=== PATIENT | male | born 1975 | race Caucasian/White ===

== ENCOUNTER 2020-04-10 07:56 | Outpatient (REF) | payer OTHER, SELFPAY ==
[2020-04-10 11:42] LABS: Alanine Aminotransferase 50 U/L (0-40); Albumin Level 4.4 g/dL (3.5-5.0); Alkaline Phosphatase 87 U/L (39-117); Anion Gap 13 (12-20); Aspartate Amino Transferase 29 U/L (5-37); Bilirubin Total 0.7 mg/dL (0.0-1.0); Blood Urea Nitrogen 14 mg/dL (9-16); Calcium 9.5 mg/dL (8.4-10.2); Carbon Dioxide 24 mmol/L (22-29); Chloride 106 mmol/L (96-108); Cholesterol 209 mg/dL; Estimated Glomerular Filt Rate > 60; Glucose Fasting 92 mg/dL (60-99); HDL Cholesterol 49 mg/dL; LDL Cholesterol Calculated 135 mg/dl; Potassium 4.7 mmol/l (3.3-5.1); Sodium 138 mmol/L (135-145); Total Protein 7.4 g/dL (6.5-8.0); Triglycerides 127 mg/dL
[2020-04-10 12:03] LABS: Free T4 (Free Thyroxine) 0.89 ng/dL (0.71-1.85)
== END 2020-04-10 07:57 | disposition home or self-care (01) ==
LOC: HO.HMGCLDS 07:56
PROVIDERS: PCP Internal Medicine; Visit Provider Internal Medicine
DX: E78.2 Mixed hyperlipidemia (principal); D12.6 Benign neoplasm of colon, unspecified; E03.9 Hypothyroidism, unspecified; M05.79 Rheumatoid arthritis with rheumatoid factor of multiple sites without organ or systems involvement; Z80.0 Family history of malignant neoplasm of digestive organs
CPT/HCPCS: 36415; 80053; 80061; 84439; 84443

== ENCOUNTER → 2020-04-16 12:53 | Outpatient (BNVA) | payer OTHER, SELFPAY | PROVIDERS: PCP Internal Medicine; Referring Provider Internal Medicine; Visit Provider Internal Medicine Gastroenterology | DX: Z76.89 Persons encountering health services in other specified circumstances (principal) ==

== ENCOUNTER 2020-04-29 09:32 | Outpatient (REF) | payer OTHER, SELFPAY ==
[2020-04-29 11:10] LABS: MANUAL DIFF FLAG NO
[2020-04-29 11:37] LABS: Basophils Absolute Auto 0.1 X10*3/uL (0.0-0.2); Basophils Percent Auto 1.3 % (0-2); Eosinophils Absolute Auto 0.1 X10*3/uL (0.0-0.4); Eosinophils Percent Auto 1.3 % (0-4); Hematocrit 40.9 % (42-52); Hemoglobin 13.6 g/dl (14.0-18.0); Imm Gran Abs Auto 0.01 X10*3/uL (0.00-0.03); Imm Gran Pct Auto 0.2 % (0.0-0.4); Lymphocytes Absolute Auto 1.7 X10*3/uL (1.2-4.9); Lymphocytes Percent Auto 37.3 % (20-40); Mean Corpuscular HGB Conc 33.3 g/dl (31.0-36.0); Mean Corpuscular Hemoglobin 32.8 pg (27.0-33.0); Mean Corpuscular Volume 98.6 fL (80-98); Mean Platelet Volume 10.5 fL (9.4-12.4); Monocytes Absolute Auto 0.4 X10*3/uL (0.1-1.2); Monocytes Percent Auto 9.1 % (2-11); Neutrophils Absolute Auto 2.3 X10*3/uL (2.0-8.3); Neutrophils Percent Auto 50.8 % (45-73); Platelet Count 266 X10*3/uL (160-400); Red Blood Count 4.15 X10*6/uL (4.60-5.80); Red Cell Distribution Width 12.7 % (11.0-16.0); White Blood Count 4.6 X10*3/uL (4.8-10.8)
[2020-04-29 11:46] LABS: Alanine Aminotransferase 42 U/L (0-40); Albumin Level 4.6 g/dL (3.5-5.0); Alkaline Phosphatase 84 U/L (39-117); Anion Gap 14 (12-20); Aspartate Amino Transferase 28 U/L (5-37); Bilirubin Total 0.8 mg/dL (0.0-1.0); Blood Urea Nitrogen 12 mg/dL (9-16); C Reactive Protein 0.21 mg/dL (< or = 0.50); Calcium 9.6 mg/dL (8.4-10.2); Carbon Dioxide 24 mmol/L (22-29); Chloride 105 mmol/L (96-108); Estimated Glomerular Filt Rate > 60; Glucose Random 97 mg/dL (60-115); Potassium 4.5 mmol/l (3.3-5.1); Sodium 138 mmol/L (135-145); Total Protein 7.5 g/dL (6.5-8.0)
[2020-04-29 14:08] LABS: Erythrocyte Sedimentation Rate 7 MM/HR (0-15)
== END 2020-04-29 09:33 | disposition home or self-care (01) ==
LOC: HO.HMGCLDS 09:32
PROVIDERS: PCP Internal Medicine; Visit Provider Student in an Organized Health Care Education/Training Program
DX: M05.79 Rheumatoid arthritis with rheumatoid factor of multiple sites without organ or systems involvement (principal); Z79.899 Other long term (current) drug therapy
CPT/HCPCS: 36415; 80053; 85025; 85652; 86140

== ENCOUNTER → 2020-07-18 08:29 | Outpatient (BNVA) | payer OTHER, SELFPAY | PROVIDERS: PCP Internal Medicine; Referring Provider Internal Medicine; Visit Provider Student in an Organized Health Care Education/Training Program | DX: Z76.89 Persons encountering health services in other specified circumstances (principal) ==

== ENCOUNTER 2020-12-01 08:25 | Outpatient (REF) | payer OTHER, SELFPAY ==
[2020-12-01 11:19] LABS: MANUAL DIFF FLAG NO
[2020-12-01 12:00] LABS: Basophils Absolute Auto 0.1 X10*3/uL (0.0-0.2); Basophils Percent Auto 1.9 % (0-2); Eosinophils Absolute Auto 0.2 X10*3/uL (0.0-0.4); Eosinophils Percent Auto 3.4 % (0-4); Hematocrit 45.1 % (42-52); Hemoglobin 14.9 g/dl (14.0-18.0); Imm Gran Abs Auto 0.01 X10*3/uL (0.00-0.03); Imm Gran Pct Auto 0.2 % (0.0-0.4); Lymphocytes Absolute Auto 1.6 X10*3/uL (1.2-4.9); Lymphocytes Percent Auto 33.8 % (20-40); Mean Corpuscular Volume 96.8 fL (80-98); Mean Platelet Volume 10.7 fL (9.4-12.4); Monocytes Absolute Auto 0.4 X10*3/uL (0.1-1.2); Monocytes Percent Auto 9.1 % (2-11); Neutrophils Absolute Auto 2.4 X10*3/uL (2.0-8.3); Neutrophils Percent Auto 51.6 % (45-73); Platelet Count 250 X10*3/uL (160-400); Red Blood Count 4.66 X10*6/uL (4.60-5.80); White Blood Count 4.7 X10*3/uL (4.8-10.8)
[2020-12-01 12:17] LABS: Alanine Aminotransferase 36 U/L (0-40); Albumin Level 4.5 g/dL (3.5-5.0); Alkaline Phosphatase 86 U/L (39-117); Anion Gap 13 (12-20); Aspartate Amino Transferase 21 U/L (5-37); Bilirubin Total 0.9 mg/dL (0.0-1.0); Blood Urea Nitrogen 11 mg/dL (9-16); C Reactive Protein 0.16 mg/dL (< or = 0.50); Carbon Dioxide 27 mmol/L (22-29); Chloride 104 mmol/L (96-108); Cholesterol 185 mg/dL; Estimated Glomerular Filt Rate > 60; Glucose Random 103 mg/dL (60-115); HDL Cholesterol 50 mg/dL; LDL Cholesterol Calculated 113 mg/dl; Potassium 4.6 mmol/L (3.3-5.1); Sodium 139 mmol/L (135-145); Thyroid Stimulating Hormone 2.47 uIU/mL (0.32-4.0); Total Protein 7.4 g/dL (6.5-8.0); Triglycerides 112 mg/dL
[2020-12-01 13:04] LABS: Erythrocyte Sedimentation Rate 3 MM/HR (0-15)
[2020-12-02 09:42] LABS: Thyroid Peroxidase Antibodies 51 IU/mL (<9)
== END 2020-12-01 08:26 | disposition home or self-care (01) ==
LOC: HO.HMGCLDS 08:25
PROVIDERS: PCP Internal Medicine; Visit Provider Student in an Organized Health Care Education/Training Program
DX: Z00.01 Encounter for general adult medical examination with abnormal findings (principal); M05.9 Rheumatoid arthritis with rheumatoid factor, unspecified; E03.9 Hypothyroidism, unspecified; E78.2 Mixed hyperlipidemia; Z86.39 Personal history of other endocrine, nutritional and metabolic disease
CPT/HCPCS: 36415; 80053; 80061; 82306; 84439; 84443; 85025; 85652; 86140; 86376

== ENCOUNTER → 2021-01-15 09:38 | Outpatient (BNVA) | payer OTHER, SELFPAY | PROVIDERS: PCP Internal Medicine; Visit Provider Student in an Organized Health Care Education/Training Program ==

== ENCOUNTER 2021-06-02 10:53 | Outpatient (REF) | payer OTHER, SELFPAY ==
[2021-06-02 13:49] LABS: MANUAL DIFF FLAG NO
[2021-06-02 14:02] LABS: Basophils Absolute Auto 0.1 X10*3/uL (0.0-0.2); Basophils Percent Auto 1.6 % (0-2); Eosinophils Absolute Auto 0.1 X10*3/uL (0.0-0.4); Eosinophils Percent Auto 1.6 % (0-4); Hematocrit 45.3 % (42.0-52.0); Hemoglobin 15.3 g/dl (14.0-18.0); Imm Gran Abs Auto 0.01 X10*3/uL (0.00-0.03); Imm Gran Pct Auto 0.2 % (0.0-0.4); Lymphocytes Absolute Auto 2.2 X10*3/uL (1.2-4.9); Lymphocytes Percent Auto 38.6 % (20-40); Mean Corpuscular HGB Conc 33.8 g/dl (31.0-36.0); Mean Corpuscular Volume 97.8 fL (80.0-98.0); Mean Platelet Volume 10.8 fL (9.4-12.4); Monocytes Absolute Auto 0.6 X10*3/uL (0.1-1.2); Monocytes Percent Auto 10.9 % (2-11); Neutrophils Absolute Auto 2.7 x10*3/uL (2.0-8.3); Neutrophils Percent Auto 47.1 % (45-73); Platelet Count 265 X10*3/uL (160-400); Red Blood Count 4.63 X10*6/uL (4.60-5.80); Red Cell Distribution Width 12.4 % (11.0-16.0); White Blood Count 5.8 X10*3/uL (4.8-10.8)
[2021-06-02 14:23] LABS: Alanine Aminotransferase 39 U/L (0-40); Albumin Level 4.6 g/dL (3.5-5.0); Alkaline Phosphatase 89 U/L (39-117); Anion Gap 12 (12-20); Aspartate Amino Transferase 26 U/L (5-37); Bilirubin Total 0.6 mg/dL (0.0-1.0); Blood Urea Nitrogen 10 mg/dL (9-16); Calcium 9.8 mg/dL (8.4-10.2); Carbon Dioxide 27 mmol/L (22-29); Chloride 104 mmol/L (96-108); Estimated Glomerular Filt Rate > 60; Glucose Random 83 mg/dL (60-115); Potassium 4.4 mmol/L (3.3-5.1); Sodium 139 mmol/L (135-145); Total Protein 7.8 g/dL (6.5-8.0)
[2021-06-02 14:42] LABS: Erythrocyte Sedimentation Rate 2 MM/HR (0-15)
== END 2021-06-02 10:54 | disposition home or self-care (01) ==
LOC: HO.HMGCLDS 10:53
PROVIDERS: Visit Provider Nurse Practitioner Family
DX: M05.9 Rheumatoid arthritis with rheumatoid factor, unspecified (principal)
CPT/HCPCS: 36415; 80053; 85025; 85652; 86140

== ENCOUNTER → 2021-06-25 12:30 | Outpatient (BNVA) | payer OTHER, SELFPAY | PROVIDERS: PCP Internal Medicine; Visit Provider Nurse Practitioner Family ==

== ENCOUNTER 2021-09-23 07:23 | Outpatient (REF) | payer OTHER, SELFPAY ==
[2021-09-23 11:25] LABS: MANUAL DIFF FLAG NO
[2021-09-23 11:39] LABS: Basophils Absolute Auto 0.1 X10*3/uL (0.0-0.2); Basophils Percent Auto 1.7 % (0-2); Eosinophils Absolute Auto 0.1 X10*3/uL (0.0-0.4); Eosinophils Percent Auto 1.7 % (0-4); Hematocrit 44.4 % (42.0-52.0); Hemoglobin 14.8 g/dl (14.0-18.0); Imm Gran Abs Auto 0.01 X10*3/uL (0.00-0.03); Imm Gran Pct Auto 0.2 % (0.0-0.4); Lymphocytes Absolute Auto 1.6 X10*3/uL (1.2-4.9); Lymphocytes Percent Auto 33.7 % (20-40); Mean Corpuscular HGB Conc 33.3 g/dl (31.0-36.0); Mean Corpuscular Volume 99.1 fL (80.0-98.0); Monocytes Absolute Auto 0.4 X10*3/uL (0.1-1.2); Monocytes Percent Auto 9.2 % (2-11); Neutrophils Absolute Auto 2.5 x10*3/uL (2.0-8.3); Neutrophils Percent Auto 53.5 % (45-73); Platelet Count 250 X10*3/uL (160-400); Red Blood Count 4.48 X10*6/uL (4.60-5.80); Red Cell Distribution Width 12.7 % (11.0-16.0); White Blood Count 4.7 X10*3/uL (4.8-10.8)
[2021-09-23 12:03] LABS: Alanine Aminotransferase 45 U/L (0-40); Albumin Level 4.4 g/dL (3.5-5.0); Alkaline Phosphatase 80 U/L (39-117); Anion Gap 13 (12-20); Aspartate Amino Transferase 27 U/L (5-37); Bilirubin Total 0.6 mg/dL (0.0-1.0); Blood Urea Nitrogen 12 mg/dL (9-16); C Reactive Protein 0.16 mg/dL (< or = 0.50); Calcium 9.8 mg/dL (8.4-10.2); Carbon Dioxide 26 mmol/L (22-29); Chloride 108 mmol/L (96-108); Estimated Glomerular Filt Rate > 60; Glucose Random 106 mg/dL (60-115); Potassium 4.8 mmol/L (3.3-5.1); Sodium 142 mmol/L (135-145); Total Protein 7.2 g/dL (6.5-8.0)
[2021-09-23 12:23] LABS: Erythrocyte Sedimentation Rate 2 MM/HR (0-15)
== END 2021-09-23 07:24 | disposition home or self-care (01) ==
LOC: HO.HMGCLDS 07:23
PROVIDERS: PCP Internal Medicine; Visit Provider Nurse Practitioner Family
DX: M05.9 Rheumatoid arthritis with rheumatoid factor, unspecified (principal)
CPT/HCPCS: 36415; 80053; 85025; 85652; 86140

== ENCOUNTER → 2021-09-24 11:00 | Outpatient (BNVA) | payer OTHER, SELFPAY | PROVIDERS: PCP Internal Medicine; Visit Provider Nurse Practitioner Family | DX: Z13.89 Encounter for screening for other disorder (principal) ==

== ENCOUNTER 2022-02-01 08:47 | Outpatient (REF) | payer OTHER, SELFPAY ==
[2022-02-01 11:16] LABS: MANUAL DIFF FLAG NO
[2022-02-01 11:23] LABS: Basophils Absolute Auto 0.1 X10*3/uL (0.0-0.2); Basophils Percent Auto 1.7 % (0-2); Eosinophils Absolute Auto 0.1 X10*3/uL (0.0-0.4); Eosinophils Percent Auto 1.3 % (0-4); Hematocrit 44.6 % (42.0-52.0); Imm Gran Abs Auto 0.03 X10*3/uL (0.00-0.03); Imm Gran Pct Auto 0.6 % (0.0-0.4); Lymphocytes Absolute Auto 1.6 X10*3/uL (1.2-4.9); Mean Corpuscular HGB Conc 33.6 g/dl (31.0-36.0); Mean Corpuscular Volume 98.2 fL (80.0-98.0); Mean Platelet Volume 10.7 fL (9.4-12.4); Monocytes Absolute Auto 0.4 X10*3/uL (0.1-1.2); Neutrophils Absolute Auto 2.5 x10*3/uL (2.0-8.3); Neutrophils Percent Auto 52.4 % (45-73); Platelet Count 248 X10*3/uL (160-400); Red Blood Count 4.54 X10*6/uL (4.60-5.80); Red Cell Distribution Width 13.2 % (11.0-16.0); White Blood Count 4.7 X10*3/uL (4.8-10.8)
[2022-02-01 11:55] LABS: Alanine Aminotransferase 38 U/L (0-40); Albumin Level 4.5 g/dL (3.5-5.0); Alkaline Phosphatase 77 U/L (39-117); Anion Gap 9 (12-20); Aspartate Amino Transferase 22 U/L (5-37); Bilirubin Total 0.5 mg/dL (0.0-1.0); Blood Urea Nitrogen 10 mg/dL (9-16); Calcium 9.8 mg/dL (8.4-10.2); Carbon Dioxide 28 mmol/L (22-29); Chloride 105 mmol/L (96-108); Estimated Glomerular Filt Rate > 60; Glucose Random 101 mg/dL (60-115); Potassium 4.6 mmol/L (3.3-5.1); Sodium 137 mmol/L (135-145); Total Protein 7.4 g/dL (6.5-8.0)
[2022-02-01 12:15] LABS: Erythrocyte Sedimentation Rate 2 MM/HR (0-15)
== END 2022-02-01 08:48 | disposition home or self-care (01) ==
LOC: HO.HMGCLDS 08:47
PROVIDERS: PCP Internal Medicine; Visit Provider Nurse Practitioner Family
DX: M05.9 Rheumatoid arthritis with rheumatoid factor, unspecified (principal)
CPT/HCPCS: 36415; 80053; 85025; 85652; 86140

== ENCOUNTER 2022-04-12 07:47 | Outpatient (REF) | payer OTHER, SELFPAY ==
[2022-04-12 11:16] LABS: MANUAL DIFF FLAG NO
[2022-04-12 11:32] LABS: Basophils Absolute Auto 0.1 X10*3/uL (0.0-0.2); Basophils Percent Auto 2.1 % (0-2); Eosinophils Absolute Auto 0.1 X10*3/uL (0.0-0.4); Eosinophils Percent Auto 1.8 % (0-4); Hematocrit 44.1 % (42.0-52.0); Hemoglobin 15.1 g/dl (14.0-18.0); Imm Gran Abs Auto 0.01 X10*3/uL (0.00-0.03); Imm Gran Pct Auto 0.3 % (0.0-0.4); Lymphocytes Absolute Auto 1.5 X10*3/uL (1.2-4.9); Lymphocytes Percent Auto 37.4 % (20-40); Mean Corpuscular HGB Conc 34.2 g/dl (31.0-36.0); Mean Corpuscular Hemoglobin 33.5 pg (27.0-33.0); Mean Corpuscular Volume 97.8 fL (80.0-98.0); Mean Platelet Volume 10.9 fL (9.4-12.4); Monocytes Absolute Auto 0.4 X10*3/uL (0.1-1.2); Neutrophils Absolute Auto 1.9 x10*3/uL (2.0-8.3); Neutrophils Percent Auto 49.4 % (45-73); Platelet Count 243 X10*3/uL (160-400); Red Blood Count 4.51 X10*6/uL (4.60-5.80); Red Cell Distribution Width 12.1 % (11.0-16.0); White Blood Count 3.9 X10*3/uL (4.8-10.8)
[2022-04-12 11:55] LABS: Alanine Aminotransferase 44 U/L (0-40); Aspartate Amino Transferase 28 U/L (5-37); C Reactive Protein 0.13 mg/dL (< or = 0.50); Cholesterol 180 mg/dL; Estimated Glomerular Filt Rate > 60; HDL Cholesterol 43 mg/dL; LDL Cholesterol Calculated 113 mg/dl; Triglycerides 124 mg/dL
[2022-04-12 12:06] LABS: Free T4 (Free Thyroxine) 0.95 ng/dL (0.71-1.85); Thyroid Stimulating Hormone 3.46 uIU/mL (0.32-4.0)
[2022-04-12 12:07] LABS: Erythrocyte Sedimentation Rate 2 MM/HR (0-15)
== END 2022-04-12 07:48 | disposition home or self-care (01) ==
LOC: HO.HMGCLDS 07:47
PROVIDERS: Absent Provider Nurse Practitioner Family; PCP Internal Medicine; Visit Provider Internal Medicine
DX: E03.9 Hypothyroidism, unspecified (principal); E78.2 Mixed hyperlipidemia; M05.9 Rheumatoid arthritis with rheumatoid factor, unspecified; Z79.899 Other long term (current) drug therapy
CPT/HCPCS: 36415; 80061; 82565; 84439; 84443; 84450; 84460; 85025; 85652; 86140

== ENCOUNTER 2022-04-22 08:52 | Outpatient (REF) | payer OTHER, SELFPAY ==
[2022-04-22 10:57] LABS: MANUAL DIFF FLAG NO
[2022-04-22 11:09] LABS: Basophils Absolute Auto 0.1 X10*3/uL (0.0-0.2); Basophils Percent Auto 1.6 % (0-2); Eosinophils Absolute Auto 0.1 X10*3/uL (0.0-0.4); Eosinophils Percent Auto 1.6 % (0-4); Hemoglobin 15.2 g/dl (14.0-18.0); Imm Gran Abs Auto 0.01 X10*3/uL (0.00-0.03); Imm Gran Pct Auto 0.2 % (0.0-0.4); Lymphocytes Absolute Auto 1.6 X10*3/uL (1.2-4.9); Lymphocytes Percent Auto 37.3 % (20-40); Mean Corpuscular HGB Conc 33.8 g/dl (31.0-36.0); Mean Corpuscular Hemoglobin 33.3 pg (27.0-33.0); Mean Corpuscular Volume 98.5 fL (80.0-98.0); Mean Platelet Volume 10.8 fL (9.4-12.4); Monocytes Absolute Auto 0.4 X10*3/uL (0.1-1.2); Monocytes Percent Auto 9.7 % (2-11); Neutrophils Absolute Auto 2.2 x10*3/uL (2.0-8.3); Neutrophils Percent Auto 49.6 % (45-73); Platelet Count 246 X10*3/uL (160-400); Red Blood Count 4.57 X10*6/uL (4.60-5.80); White Blood Count 4.3 X10*3/uL (4.8-10.8)
[2022-04-22 11:44] LABS: Alanine Aminotransferase 38 U/L (0-40); Aspartate Amino Transferase 24 U/L (5-37)
== END 2022-04-22 08:53 | disposition home or self-care (01) ==
LOC: HO.HMGCLDS 08:52
PROVIDERS: PCP Internal Medicine; Visit Provider Nurse Practitioner Family
DX: D70.9 Neutropenia, unspecified (principal); R79.89 Other specified abnormal findings of blood chemistry
CPT/HCPCS: 36415; 84450; 84460; 85025

== ENCOUNTER 2022-05-13 11:07 | Outpatient (REF) | payer OTHER, SELFPAY ==
[2022-05-13 14:09] LABS: MANUAL DIFF FLAG NO
[2022-05-13 14:19] LABS: Basophils Absolute Auto 0.1 X10*3/uL (0.0-0.2); Basophils Percent Auto 1.6 % (0-2); Eosinophils Absolute Auto 0.1 X10*3/uL (0.0-0.4); Eosinophils Percent Auto 1.8 % (0-4); Hematocrit 47.7 % (42.0-52.0); Hemoglobin 15.9 g/dl (14.0-18.0); Imm Gran Abs Auto 0.01 X10*3/uL (0.00-0.03); Imm Gran Pct Auto 0.2 % (0.0-0.4); Lymphocytes Absolute Auto 1.7 X10*3/uL (1.2-4.9); Lymphocytes Percent Auto 30.8 % (20-40); Mean Corpuscular HGB Conc 33.3 g/dl (31.0-36.0); Mean Corpuscular Hemoglobin 32.9 pg (27.0-33.0); Mean Corpuscular Volume 98.8 fL (80.0-98.0); Mean Platelet Volume 10.9 fL (9.4-12.4); Monocytes Absolute Auto 0.7 X10*3/uL (0.1-1.2); Monocytes Percent Auto 11.7 % (2-11); Neutrophils Percent Auto 53.9 % (45-73); Platelet Count 261 X10*3/uL (160-400); Red Blood Count 4.83 X10*6/uL (4.60-5.80); Red Cell Distribution Width 11.9 % (11.0-16.0); White Blood Count 5.6 X10*3/uL (4.8-10.8)
[2022-05-13 14:30] LABS: Alanine Aminotransferase 64 U/L (0-40); Aspartate Amino Transferase 38 U/L (5-37)
== END 2022-05-13 11:08 | disposition home or self-care (01) ==
LOC: HO.HMGCLDS 11:07
PROVIDERS: Visit Provider Nurse Practitioner Family
DX: M05.9 Rheumatoid arthritis with rheumatoid factor, unspecified (principal); Z79.899 Other long term (current) drug therapy
CPT/HCPCS: 36415; 84450; 84460; 85025

== ENCOUNTER 2022-09-01 10:15 | Outpatient (REF) | payer OTHER, SELFPAY ==
[2022-09-01 11:13] LABS: MANUAL DIFF FLAG NO
[2022-09-01 11:21] LABS: Basophils Absolute Auto 0.1 X10*3/uL (0.0-0.2); Basophils Percent Auto 1.7 % (0-2); Eosinophils Absolute Auto 0.1 X10*3/uL (0.0-0.4); Eosinophils Percent Auto 1.1 % (0-4); Hematocrit 45.8 % (42.0-52.0); Hemoglobin 15.5 g/dl (14.0-18.0); Imm Gran Abs Auto 0.02 X10*3/uL (0.00-0.03); Imm Gran Pct Auto 0.4 % (0.0-0.4); Lymphocytes Absolute Auto 1.9 X10*3/uL (1.2-4.9); Lymphocytes Percent Auto 34.6 % (20-40); Mean Corpuscular HGB Conc 33.8 g/dl (31.0-36.0); Mean Corpuscular Hemoglobin 32.3 pg (27.0-33.0); Mean Corpuscular Volume 95.4 fL (80.0-98.0); Mean Platelet Volume 10.5 fL (9.4-12.4); Monocytes Absolute Auto 0.5 X10*3/uL (0.1-1.2); Monocytes Percent Auto 9.1 % (2-11); Neutrophils Absolute Auto 2.9 x10*3/uL (2.0-8.3); Neutrophils Percent Auto 53.1 % (45-73); Platelet Count 224 X10*3/uL (160-400); Red Cell Distribution Width 12.3 % (11.0-16.0); White Blood Count 5.4 X10*3/uL (4.8-10.8)
[2022-09-01 12:00] LABS: Alanine Aminotransferase 35 U/L (0-40); Aspartate Amino Transferase 21 U/L (5-37); C Reactive Protein 0.19 mg/dL (< or = 0.50); Estimated Glomerular Filt Rate > 60
[2022-09-01 12:02] LABS: Erythrocyte Sedimentation Rate 5 MM/HR (0-15)
[2022-09-01 12:07] LABS: HBc Num1 0.11 S/CO (0.00-0.79); HBsAGNum1 0.25 S/CO (0.00-0.99); Hepatitis A Antibody IgM 0.25 Index (0-0.79); Hepatitis B Core Antibody Nonreactive (Nonreactive); Hepatitis B Surface Antigen Negative (Negative); ~Hepatitis A Antibody IgM Nonreactive (Nonreactive); ~Hepatitis B Surface Antibody NONREACTIVE (Nonreactive); ~Hepatitis C Antibody Nonreactive (Nonreactive)
[2022-09-04 07:54] LABS: TS Negative Control Passed; TS Panel A 1; TS Panel B 0; TS Positive Control Passed; TSpotTB Negative (Negative)
== END 2022-09-01 10:16 | disposition home or self-care (01) ==
LOC: HO.HMGCLDS 10:15
PROVIDERS: PCP Internal Medicine; Visit Provider Nurse Practitioner Family
DX: M06.9 Rheumatoid arthritis, unspecified (principal); Z79.899 Other long term (current) drug therapy
CPT/HCPCS: 36415; 82565; 84450; 84460; 85025; 85652; 86140; 86481; 86704; 86706; 86709; 86803; 87340

== ENCOUNTER → 2022-09-03 10:35 | Outpatient (BNVA) | payer OTHER, SELFPAY | PROVIDERS: PCP Internal Medicine; Visit Provider Nurse Practitioner Family | DX: Z13.89 Encounter for screening for other disorder (principal) ==

== ENCOUNTER 2022-10-27 07:39 | Outpatient (REF) | payer OTHER, SELFPAY ==
[2022-10-27 12:10] LABS: Alanine Aminotransferase 33 U/L (0-40); Aspartate Amino Transferase 20 U/L (5-37); Cholesterol 190 mg/dL; HDL Cholesterol 40 mg/dL; LDL Cholesterol Calculated 124 mg/dl; Triglycerides 133 mg/dL
[2022-10-27 12:32] LABS: Free T4 (Free Thyroxine) 0.92 ng/dL (0.71-1.85); Thyroid Stimulating Hormone 4.31 uIU/mL (0.32-4.0); Vitamin D 25-OH Total 22.5 ng/mL (>30)
== END 2022-10-27 07:40 | disposition home or self-care (01) ==
LOC: HO.HMGCLDS 07:39
PROVIDERS: PCP Internal Medicine; Visit Provider Internal Medicine
DX: E03.9 Hypothyroidism, unspecified (principal); E78.2 Mixed hyperlipidemia; E55.9 Vitamin D deficiency, unspecified; Z79.899 Other long term (current) drug therapy
CPT/HCPCS: 36415; 80061; 82306; 84439; 84443; 84450; 84460

== ENCOUNTER 2023-02-22 09:22 | Outpatient (AMB) | payer OTHER, SELFPAY ==
--- NOTE | 2023-02-22 09:29 | MHC.PC.OV ---
Vital Signs 02/22/23 09:31 Height 6 ft 2 in Weight 325 lb BMI 41.7 BP 126/74 Blood Pressure Location Rt brachial Position Sitting Pulse 78 Pulse Source Pulse Oximeter Pulse Oximetry (%) 98 Intake Visit Reasons: Annual PE Intake Note: pt is here for physical exam [employer] Consultant Required: No Accompanied by: Self / Same As Patient Allergies No Known Allergies [No Known Allergies*] Allergy (Verified 02/22/23 10:00) Medication List - Last Reconciled 02/22/23 by Cristina Mane MD atorvastatin 10 mg PO DAILY cholecalciferol (vitamin D3) 50 mcg PO DAILY levothyroxine 75 mcg PO QAM Tobacco use date assessed: 02/22/23 Dental Screening Dental Screen Date: 02/22/23 Did you have a dental visit in the last 12 months?: Yes Did you have a dental problem in the last 6 months where you did not have access to dental care?: No Was dental information given to patient?: Patient has dentist HPI Annual PE HPI Details 47-year-old male with hypothyroidism and dyslipidemia, here today for his physical exam. He he is currently on levothyroxine 75 mcg daily and atorvastatin 10 mg daily, stays vitamin-D 3 supplements every day, feels well on current treatment. He also has been diagnosed to have seropositive rheumatoid arthritis, currently being followed at [facility] [place] [facility] rheumatology clinic, previously on long-term methotrexate treatment but was discontinued due to elevations in his liver enzymes. Patient states that he has not had any joint pain, muscle weakness since discontinuation of the medication. He is up-to-date with his screening colonoscopy [place] [address] Tobar, with tubular adenoma removed, to be repeated in 2024. He has had his COVID vaccine, gets flu shots but does not want to get any further COVID vaccination. Up-to-date with [address] Medical History (Updated 02/22/23 @ 10:19 by Cristina Mane MD) Acquired hypothyroidism Anemia Colon adenomas Family history of colon cancer in father GERD (gastroesophageal reflux disease) retirement methotrexate user Morbid obesity Obesity Seropositive rheumatoid arthritis Vitamin D deficiency Surgical History H/O colonoscopy Family History Father Colon cancer, Onset Age: 58 Mother Lung cancer Cancer Maternal Grandmother Lung cancer Social History Household Members: Spouse and Children Housing: House Alcohol intake: current Alcohol intake frequency: a few times a week Patient Tobacco Use Status: Former Tobacco user e-Cigarette/Vaping Use: Never Used Current occupational status: employed 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 Depression Screening Interpretation: Negative Source: Developed by Drs. Wellington Gordon, Anabell Barry, Riley Bernal and colleagues, with an educational alfredo from [employer]. Thrive Questionnaire Date Thrive assessed: 10/28/22 I am a: Patient What is your living situation today?: I have a steady place to live Within the past 12 months, did the food you bought not last and you didn't have the money to get more?: Never true Within the past 12 months, did you worry whether your food would run out before you got money to buy more?: Never true AUDIT C Alcohol Use Questionnaire (AUDIT-C) 1. How often do you have a drink containing alcohol?: Never Total Score: 0 RAJANI-7 AMB Questionnaire RAJANI-7 Date RAJANI - 7 assessed: 10/28/22 Feeling nervous, anxious, or on edge: 0 = Not at all Not being able to stop or control worryin = Not at all Worrying too much about different things: 0 = Not at all Trouble relaxin = Not at all Being so restless that it is hard to sit still: 0 = Not at all Becoming easily annoyed or irritable: 0 = Not at all Feeling afraid as if something awful might happen: 0 = Not at all Total RAJANI-7 score (0-4 normal; 5-9 mild; 10-14 moderate; 15-21 severe): 0 Source: Developed by Drs. Wellington Gordon, Anabell Barry, Riley Bernal and colleagues, with an educational alfredo from [employer]. RAJANI-7 Assessment Billing RAJANI-7 Assessment Tool: RAJANI-7 Assessment 90316 Review of Systems Const Denies body aches, Denies fatigue, Denies fever(s), Denies headache(s) and Denies weakness Eyes Denies change in vision, Denies eye discharge and Denies itchy eyes ENT Denies dizziness, Denies headache(s), Denies nasal congestion, Denies nasal discharge and Denies sore throat Card Denies chest pain, Denies lightheadedness, Denies palpitations and Denies dyspnea Resp Denies chest congestion, Denies cough, Denies dyspnea and Denies wheezing GI Denies abdominal pain, Denies change in bowel habits and Denies heartburn Denies dysuria, Denies urinary frequency and Denies urinary urgency Musc Reports no additional complaints Skin/Breast Details: r Denies lesions and Denies rash Neuro Denies dizziness, Denies headache(s) and Denies weakness Psych Details: Negative for anxiety, depression Endo Denies fatigue, Denies polydipsia, Denies polyuria and Denies palpitations Wilbur/Lymph Details: . Denies easy bruising Aller/Immun Denies itchy eyes, Denies seasonal rhinorrhea and Denies wheezing Physical exam (Primary Care) Vital Signs: Last Vital Signs Pulse 78 02/22/23 09:31 BP 126/74 02/22/23 09:31 Pulse Ox 98 02/22/23 09:31 BMI result Body Mass Index 41.7 BMI Assessment/Plan discussion: High BMI High, discussed plan: lifestyle, weight reduction, dietary and physical activity Tobacco/Smoking Status: Tobacco use Status Tobacco use date assessed 02/22/23 02/22/23 09:32 Patient Tobacco Use Status Former Tobacco user 02/22/23 09:32 e-Cigarette/Vaping Use Never Used 02/22/23 09:32 Depression Screening Interpretation: Negative Thrive Assessment: Date of Thrive Assessment Date Thrive assessed 10/28/22 02/22/23 09:32 Const General: comfortable, no acute distress, alert and awake Nutritional Appearance: obese morbidly obese Orientation/consciousness: patient oriented x3 Limitations: no limitations HENMT Mouth: Normal oral and palatal mucosa present and moist mucous membranes Eyes General: appearance normal, both eyes and all related structures Neck Neck: Yes full ROM, Yes no lymphadenopathy and Yes supple Thyroid: Thyroid normal (Nonpalpable and nontender) Chest Chest palpation & inspection: normal inspection of the chest and normal palpation of entire chest wall Resp Effort & Inspection: normal respiratory effort and able to speak in complete sentences Auscultation: clear to auscultation bilaterally Cardio Other: S1-S2 present, regular rate and rhythm GI Other: Normal bowel sounds, obese , soft, no rebound or guarding noted General: Yes no CVA tenderness Back/Spine/Pelvis Back: no CVA tenderness and No back tenderness Skin General skin exam: no rashes or lesions noted Neuro General: patient oriented x3, gait normal, tone normal, moves all extremities, Normal light touch and pain sensation and no focal motor deficits Extrem General: Yes full ROM, Yes no joint enlargement, Yes no clubbing, cyanosis or edema, Yes no calf tenderness and Yes normal gait Psych Appearance: grossly normal and well kempt Mental Status: mental status grossly normal Speech and movement: Normal speech and movement present Affect: normal affect Attitude: cooperative Thought process: Normal thought process present Thought content: Normal thought content present Assessment and Plan Assessment & Plan (1) Colon adenomas: Comment: 2014; 2019;RECALL SHOULD BE 2024 Code(s): D12.6 - Benign neoplasm of colon, unspecified Plan: Due for repeat colonoscopy in 2024 (2) Family history of colon cancer in father: Code(s): Z80.0 - Family history of malignant neoplasm of digestive organs Plan: Due for repeat colonoscopy in 2024 (3) Seropositive rheumatoid arthritis: Comment: methotrexate January 2017- 05/13/2022 stopped due to elevated LFTs Code(s): M05.9 - Rheumatoid arthritis with rheumatoid factor, unspecified Plan: Currently asymptomatic, not taking any medications for joint pain (4) Mixed hyperlipidemia: Code(s): E78.2 - Mixed hyperlipidemia Plan: Last the lipids drawn October 2022 showed mildly elevated LDL cholesterol will repeat levels again, in the meantime continue with atorvastatin 10 mg daily and adherence to healthy eating habits and regular exercise. (5) Acquired hypothyroidism: Code(s): E03.9 - Hypothyroidism, unspecified Plan: Last thyroid levels drawn October 2022 showed mildly elevated TSH with normal free T4, will recheck again thyroid levels. Continued on current dose of levothyroxine (6) Vitamin D deficiency: Code(s): E55.9 - Vitamin D deficiency, unspecified Plan: Repeat another vitamin-D level, continue with vitamin-D 3 at 2000 units per capsule taken once a day (7) Annual visit for general adult medical examination with abnormal findings: Code(s): Z00.01 - Encounter for general adult medical examination with abnormal findings Plan: Will check appropriate labs. Recommended dental visit every 6 months and regular eye exams, at least every 2 years. Take adequate calcium in diet and vitamin-D 3 at 2000 IU per cap once a day, in addition to weight-bearing exercises to help maintain good muscle tone and weight control. Instructed to do testicular exam to check for any mass. Up-to-date with his screening colonoscopy. Up-to-date with dose vaccines but does not want to get a COVID booster anymore (8) Morbid obesity: Code(s): E66.01 - Morbid (severe) obesity due to excess calories Plan: Discussed need to increase activity and wt reduction. Recommended focusing on improving your health instead of dieting. : Eat Mediterranean diet, limit foods high in fat, sugar, and calories, eat slowly, pay attention to portion sizes, plan your meals ahead of time, start regular physical activity 150 minutes of moderate intensity exercise or 90 minutes/week of vigorous exercise and increase water intake. Coding Level of Care Code Est Pt Prev Care 40-64y(14057) Diagnoses Colon adenomas D12.6 Family history of colon cancer in father Z80.0 Seropositive rheumatoid arthritis M05.9 Mixed hyperlipidemia E78.2 Acquired hypothyroidism E03.9 Vitamin D deficiency E55.9 Annual visit for general adult medical examination with abnormal findings Z00.01 Morbid obesity E66.01 Additional Codes RAJANI-7 Assessment Billing - RAJANI-7 Assessment Tool: RAJANI-7 Assessment [id number] ([id number])
[2023-02-22 09:31] VITALS: BP 126/74; PULSE 78; O2SAT 98; BMI 41.7
== END 2023-02-22 10:48 | disposition home or self-care (01) ==
PROVIDERS: Visit Provider Internal Medicine
DX: Z00.01 Encounter for general adult medical examination with abnormal findings (principal); E03.9 Hypothyroidism, unspecified; E55.9 Vitamin D deficiency, unspecified; M05.9 Rheumatoid arthritis with rheumatoid factor, unspecified; Z80.0 Family history of malignant neoplasm of digestive organs; D12.6 Benign neoplasm of colon, unspecified; E78.2 Mixed hyperlipidemia; E66.01 Morbid (severe) obesity due to excess calories
CPT/HCPCS: 99396

== ENCOUNTER 2023-04-14 08:20 | Outpatient (REF) | payer OTHER, SELFPAY | END 2023-04-14 08:21 | disposition home or self-care (01) | LOC: HO.HMGCLDS 08:20 | PROVIDERS: PCP Internal Medicine; Visit Provider Internal Medicine | DX: M05.9 Rheumatoid arthritis with rheumatoid factor, unspecified (principal); E03.9 Hypothyroidism, unspecified; E55.9 Vitamin D deficiency, unspecified; E78.2 Mixed hyperlipidemia | CPT/HCPCS: 36415; 80061; 82306; 82947; 84439; 84443; 84450; 84460 ==

== ENCOUNTER 2024-05-23 13:25 | Outpatient (AMB) | payer OTHER, SELFPAY ==
--- NOTE | 2024-05-23 13:55 | A.OFFPC_ITS ---
Vital Signs 05/23/24 14:14 Height 6 ft 2 in Weight 333 lb BMI 42.7 BP 132/86 Blood Pressure Location Rt brachial Position Sitting Pulse 87 Pulse Source Pulse Oximeter Pulse Oximetry (%) 98 Oxygen Delivery Method Room Air Intake Visit Reasons: PE Intake Note: Pt is here today for his PE Allergies No Known Allergies [No Known Allergies*] Allergy (Verified 05/27/24 17:14) Medication List - Last Reconciled 05/27/24 by Cristina Mane MD atorvastatin 10 mg PO DAILY cholecalciferol (vitamin D3) 50 mcg PO DAILY levothyroxine 75 mcg PO QAM Tobacco use date assessed: 05/23/24 Dental Screening Dental Screen Date: 05/23/24 Did you have a dental visit in the last 12 months?: Yes Did you have a dental problem in the last 6 months where you did not have access to dental care?: No Was dental information given to patient?: Patient has dentist HPI PE HPI Details 48 year-old male with hypothyroidism , d yslipidemia, and rheumatoid arthritis, here today for his physical exam. He is currently on levothyroxine 75 mcg daily and atorvastatin 10 mg daily, vitamin-D 3 supplements every day, feels well on current treatment. He was previously on long-term methotrexate treatment, later discontinued due to elevations in his liver enzymes. Patient states that he has not had any joint pain, muscle weakness since discontinuation of the medication. He is up-to-date with his screening colonoscopy [place] [address] Tobar, with tubular adenoma removed, to be repeated in 2024. [facility] Medical History (Updated 05/23/24 @ 14:37 by Cristina Mane MD) prison methotrexate user Morbid obesity Acquired hypothyroidism Anemia Seropositive rheumatoid arthritis GERD (gastroesophageal reflux disease) Obesity Vitamin D deficiency Family history of colon cancer in father Colon adenomas Surgical History H/O colonoscopy Family History Father Colon cancer, Onset Age: 58 Mother Lung cancer Cancer Maternal Grandmother Lung cancer Social History Household Members: Spouse and Children Housing: House Alcohol intake: current Alcohol intake frequency: a few times a week Patient Tobacco Use Status: Former Tobacco user e-Cigarette/Vaping Use: Never Used Current occupational status: employed 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 1. Little interest or pleasure in doing things: not at all 2. Feeling down, depressed, or hopeless: not at all 3. Trouble falling or staying asleep, or sleeping too much: not at all 4. Feeling tired or having little energy: not at all 5. Poor appetite or overeating: not at all 6. Feeling bad about yourself - or that you are a failure or have let yourself or your family down: not at all 7. Trouble concentrating on things, such as reading the newspaper or watching television: not at all 8. Moving or speaking so slowly that other people could have noticed. Or the opposite - being so fidgety or restless that you have been moving around a lot more than usual: not at all 9. Thoughts that you would be better off or of hurting yourself in some way: not at all Total score: 0 Depression Screening Interpretation: Negative Depression Screening Done: Yes 93718 - PHQ-9 Billing: Yes Source: Developed by Drs. Wellington Gordon, Anabell Barry, Riley Bernal and colleagues, with an educational alfredo from [employer]. Thrive Questionnaire Date Thrive assessed: 05/23/24 I am a: Patient What is your living situation today?: I have a steady place to live Within the past 12 months, did the food you bought not last and you didn't have the money to get more?: Never true Within the past 12 months, did you worry whether your food would run out before you got money to buy more?: Never true Do you have trouble paying for medicines?: No Do you have trouble getting transportation to medical appointments?: No Do you have trouble paying your heating and electricity bill?: No Do you have trouble taking care of your child, family member or friend?: No Do you have trouble with day-to-day activities such as bathing, preparing meals, shopping, managing finances, etc.?: No Are you currently unemployed and looking for a job?: No Are you interested in more education?: No Please select the resources that you would like help with: None Currently or been in a relationship where the following occur: No concerns reported THRIVE Score: 0 AUDIT C Alcohol Use Questionnaire (AUDIT-C) 1. How often do you have a drink containing alcohol?: Monthly or less 2. How many drinks containing alcohol do you have on a typical day when you are drinking?: 1 or 2 3. How often do you have six or more drinks on one occasion?: Never Total Score: 1 RAJANI-7 AMB Questionnaire RAJANI-7 Date RAJANI - 7 assessed: 05/23/24 Feeling nervous, anxious, or on edge: 0 = Not at all Not being able to stop or control worryin = Not at all Worrying too much about different things: 0 = Not at all Trouble relaxin = Not at all Being so restless that it is hard to sit still: 0 = Not at all Becoming easily annoyed or irritable: 0 = Not at all Feeling afraid as if something awful might happen: 0 = Not at all Total RAJANI-7 score (0-4 normal; 5-9 mild; 10-14 moderate; 15-21 severe): 0 Source: Developed by Drs. Wellington Gordon, Anabell Barry, Riley Bernal and colleagues, with an educational alfredo from [employer]. RAJANI-7 Assessment Billing RAJANI-7 Assessment Tool: RAJANI-7 Assessment 80835 Review of Systems Const Denies body aches, Denies fatigue, Denies fever(s), Denies headache(s), Denies weakness and Reports weight gain Eyes Denies change in vision, Denies eye discharge and Denies itchy eyes ENT Denies dizziness, Denies headache(s), Denies nasal congestion, Denies nasal discharge and Denies sore throat Card Denies chest pain, Denies lightheadedness, Denies palpitations and Denies dyspnea Resp Denies chest congestion, Denies cough, Denies dyspnea and Denies wheezing GI Denies abdominal pain, Denies change in bowel habits and Denies heartburn Denies dysuria, Denies urinary frequency and Denies urinary urgency Musc Reports no additional complaints Skin/Breast Denies lesions and Denies rash Neuro Denies dizziness, Denies headache(s) and Denies weakness Psych Details: Negative for anxiety, depression Endo Denies fatigue, Denies polydipsia, Denies polyuria and Denies palpitations Wilbur/Lymph Details: . Denies easy bruising Aller/Immun Denies itchy eyes, Denies seasonal rhinorrhea and Denies wheezing Physical exam (Primary Care) Vital Signs: Last Vital Signs Pulse 87 05/23/24 14:14 BP 132/86 05/23/24 14:14 Pulse Ox 98 05/23/24 14:14 Oxygen Delivery Method Room Air 05/23/24 14:14 BMI result Body Mass Index 42.7 BMI Assessment/Plan discussion: High BMI High, discussed plan: lifestyle, weight reduction, dietary and physical activity Tobacco/Smoking Status: Tobacco use Status Tobacco use date assessed 05/23/24 05/23/24 13:58 Patient Tobacco Use Status Former Tobacco user 05/23/24 13:56 e-Cigarette/Vaping Use Never Used 05/23/24 13:56 PHQ-9: PHQ-9 Score PHQ-9: Total score 0 05/23/24 14:41 Depression Screening Interpretation: Negative Thrive Assessment: Date of Thrive Assessment Date Thrive assessed 05/23/24 05/23/24 13:58 Currently or been in a relationship where the following occur: No concerns reported Const General: comfortable, no acute distress, alert and awake Nutritional Appearance: obese morbidly obese Orientation/consciousness: patient oriented x3 HENMT Mouth: Normal oral and palatal mucosa present and moist mucous membranes Eyes General: appearance normal, both eyes and all related structures Neck Neck: Yes full ROM, Yes no lymphadenopathy and Yes supple Thyroid: Thyroid normal (Nonpalpable and nontender) Chest Chest palpation & inspection: normal inspection of the chest and normal palpati on of entire chest wall Resp Effort & Inspection: normal respiratory effort and able to speak in complete sentences Auscultation: clear to auscultation bilaterally Cardio Other: S1-S2 present, regular rate and rhythm GI Other: Normal bowel sounds, obese , soft, no rebound or guarding noted General: Yes no CVA tenderness Back/Spine/Pelvis Back: no CVA tenderness and No back tenderness Skin General skin exam: no rashes or lesions noted Neuro General: patient oriented x3, gait normal, tone normal, moves all extremities, Normal light touch and pain sensation and no focal motor deficits Extrem General: Yes full ROM, Yes no joint enlargement, Yes no clubbing, cyanosis or edema, Yes no calf tenderness and Yes normal gait Psych Appearance: grossly normal and well kempt Mental Status: mental status grossly normal Speech and movement: Normal speech and movement present Affect: normal affect Attitude: cooperative Thought process: Normal thought process present Thought content: Normal thought content present Coding Level of Care Code Est Pt Prev Care 40-64y(75708) Diagnoses Colon adenomas D12.6 Family history of colon cancer in father Z80.0 Vitamin D deficiency E55.9 Mixed hyperlipidemia E78.2 Acquired hypothyroidism E03.9 Morbid obesity E66.01 Seropositive rheumatoid arthritis M05.9 Annual visit for general adult medical examination with abnormal findings Z00.01 Additional Codes PHQ-9 - 54923 - PHQ-9 Billing: Yes ([id number]) RAJANI-7 Assessment Billing - RAJANI-7 Assessment Tool: RAJANI-7 Assessment 05316 ([id number]) Assessment & Plan Assessment & Plan (1) Colon adenomas: Comment: 2014; 2019;RECALL SHOULD BE 2024 Code(s): D12.6 - Benign neoplasm of colon, unspecified Category: Medical Plan: History for repeat colonoscopy screening in 2024, referral ordered (2) Family history of colon cancer in father: Code(s): Z80.0 - Family history of malignant neoplasm of digestive organs Category: Medical Plan: Referred for repeat colonoscopy screening due again next year (3) Vitamin D deficiency: Code(s): E55.9 - Vitamin D deficiency, unspecified Category: Medical Plan: Ordered vitamin-D level checked (4) Mixed hyperlipidemia: Code(s): E78.2 - Mixed hyperlipidemia Category: Medical Plan: fasting lipid profile ordered . Continue atorvastatin 10 mg daily , in addition to adherence to low-cholesterol diet and regular exercise, at least 30 minutes 3 to 4 times a week. Advised patient to make healthy food choices, eat more fruits, vegetables, whole grains, wild caught fish and low-fat dairy. Limit amount of meat and fried or fatty food products, as well as processed foods and fast foods. (5) Acquired hypothyroidism: Code(s): E03.9 - Hypothyroidism, unspecified Category: Medical Plan: Repeat thyroid stimulating hormone and free T4 ordered, currently on levothyroxine 75 mcg daily in a.m. (6) Morbid obesity: Code(s): E66.01 - Morbid (severe) obesity due to excess calories Category: Medical Plan: Discussed need to increase activity and weight reduction. Recommended focusing on improving health instead of dieting. Mediterranean diet is a healthy diet that helps, limit food high in fat, sugar, and calories. Eat slowly, pay attention to portion sizes, plan your meals ahead of time, start re gular physical activity, at least 150 minutes of moderate intensity exercise, or 90 minutes per week of vigorous exercise. Keeping a food diary, tracking what you eat and your physical activity can help assess what improvements you can make. There are many health problems associated with being overweight/obese, so it is important to improve your diet and exercise. There are medications and surgical options available, but Lifestyle changes are the 1st step. (7) Seropositive rheumatoid arthritis: Comment: methotrexate January 2017- 05/13/2022 stopped due to elevated LFTs Code(s): M05.9 - Rheumatoid arthritis with rheumatoid factor, unspecified Category: Medical Plan: Currently off medication, asymptomatic (8) Annual visit for general adult medical examination with abnormal findings: Code(s): Z00.01 - Encounter for general adult medical examination with abnormal findings Plan: Will check appropriate labs. Continue regular dental visit every 6 months and regular eye exams, at least every 2 years. Take adequate calcium in diet and vitamin-D 3 at 2000 IU per cap once a day, in addition to weight-bearing exercises to help maintain good muscle tone and weight control. Instructed to do self testicular exam check for any mass. Due for a repeat screening colonoscopy next year. Up-to-date with his pneumonia vaccination, reminded to get yearly flu shot, but does not want to get a COVID booster Orders: Orders Thyroid Stimulating Hormone 05/23/24 D12.6 - Benign neoplasm of colon, unspecified, E03.9 - Hypothyroidism, unspecified, E55.9 - Vitamin D deficiency, unspecified, E78.2 - Mixed hyperlipidemia, Z80.0 - Family history of malignant neoplasm of digestive organs Alanine Aminotransferase 05/23/24 D12.6 - Benign neoplasm of colon, unspecified, E03.9 - Hypothyroidism, unspecified, E55.9 - Vitamin D deficiency, unspecified, E78.2 - Mixed hyperlipidemia, Z80.0 - Family history of malignant neoplasm of digestive organs Basic Metabolic Panel Fasting 05/23/24 D12.6 - Benign neoplasm of colon, unspecified, E03.9 - Hypothyroidism, unspecified, E55.9 - Vitamin D deficiency, unspecified, E78.2 - Mixed hyperlipidemia, Z80.0 - Family history of malignant neoplasm of digestive organs Free T4 (Free Thyroxine) 05/23/24 D12.6 - Benign neoplasm of colon, unspecified, E03.9 - Hypothyroidism, unspecified, E55.9 - Vitamin D deficiency, unspecified, E78.2 - Mixed hyperlipidemia, Z80.0 - Family history of malignant neoplasm of digestive organs Lipid Panel 05/23/24 D12.6 - Benign neoplasm of colon, unspecified, E03.9 - Hypothyroidism, unspecified, E55.9 - Vitamin D deficiency, unspecified, E78.2 - Mixed hyperlipidemia, Z80.0 - Family history of malignant neoplasm of digestive organs Aspartate Amino Transferase 05/23/24 D12.6 - Benign neoplasm of colon, unspecified, E03.9 - Hypothyroidism, unspecified, E55.9 - Vitamin D deficiency, unspecified, E78.2 - Mixed hyperlipidemia, Z80.0 - Family history of malignant neoplasm of digestive organs Vitamin D 25-OH Total 05/23/24 D12.6 - Benign neoplasm of colon, unspecified, E03.9 - Hypothyroidism, unspecified, E55.9 - Vitamin D deficiency, unspecified, E78.2 - Mixed hyperlipidemia, Z80.0 - Family history of malignant neoplasm of digestive organs Referrals Gastroenterology Referral D12.6 - Benign neoplasm of colon, unspecified, Z80.0 - Family history of malignant neoplasm of digestive organs Medications: Refilled levothyroxine 75 mcg PO QAM 90 tabs 3RF atorvastatin 10 mg PO DAILY 90 tabs 3RF E78.2 - Mixed hyperlipidemia
[2024-05-23 14:14] VITALS: BP 132/86; PULSE 87; O2SAT 98; BMI 42.7
== END 2024-05-23 14:46 | disposition home or self-care (01) ==
PROVIDERS: PCP Internal Medicine; Visit Provider Internal Medicine
DX: Z00.00 Encounter for general adult medical examination without abnormal findings (principal); M05.9 Rheumatoid arthritis with rheumatoid factor, unspecified; E66.01 Morbid (severe) obesity due to excess calories; Z68.41 Body mass index [BMI] 40.0-44.9, adult; D12.6 Benign neoplasm of colon, unspecified; Z80.0 Family history of malignant neoplasm of digestive organs; E55.9 Vitamin D deficiency, unspecified; E78.2 Mixed hyperlipidemia; E03.9 Hypothyroidism, unspecified

== ENCOUNTER → 2024-05-23 13:25 | Outpatient (BNVA) | payer OTHER, SELFPAY | PROVIDERS: PCP Internal Medicine; Visit Provider Internal Medicine | DX: Z00.00 Encounter for general adult medical examination without abnormal findings (principal); E55.9 Vitamin D deficiency, unspecified; E78.2 Mixed hyperlipidemia; E03.9 Hypothyroidism, unspecified; E66.01 Morbid (severe) obesity due to excess calories; Z68.41 Body mass index [BMI] 40.0-44.9, adult; M05.9 Rheumatoid arthritis with rheumatoid factor, unspecified; Z79.899 Other long term (current) drug therapy; Z86.0101 Personal history of adenomatous and serrated colon polyps; Z80.0 Family history of malignant neoplasm of digestive organs | CPT/HCPCS: 96127 ==

== ENCOUNTER 2024-10-19 08:27 | Outpatient (AMB) | payer OTHER, SELFPAY ==
--- NOTE | 2024-10-19 08:28 | A.OFFVIS_ITS ---
Vital Signs 10/19/24 08:29 Height 6 ft 2 in Weight 310 lb BMI 39.8 BP 128/84 Blood Pressure Location Rt brachial Position Sitting Pulse 84 Pulse Source Pulse Oximeter Pulse Oximetry (%) 94 Oxygen Delivery Method Room Air Intake Visit Reasons: [place] screening Intake Note: NEW PATIENT for repeat colo per FMHx + polypectomy w/ TA hx. Last colo 03/2020. Chief Complaint; Pt denies any GI concerns at this time. Document Design Specialist Required: No Accompanied by: Self / Same As Patient Allergies No Known Allergies [No Known Allergies*] Allergy (Verified 10/19/24 08:29) HPI HPI [place] screening: Details: 49 year old? male with past medical history of hypothyroidism, hyperlipidemia, rheumatoid arthritis is here today for pre colonoscopy screening.? Patient was sent to us by his PCP.? Patient denies any gastrointestinal symptoms in the past or at present.? Personal history of tubular adenoma and family history of CRC. Patient's father was diagnosed with colorectal cancer in his 40s. Denies history of difficulty with sedation or anesthesia in the past.? Negative for history of sleep apnea.? Denies any history of cardiac, renal, pulmonary, or hepatic disease.?? No history of infectious? diseases like hepatitis A, B, C, HIV or tuberculosis.? Patient is not on any anticoagulation [facility] Medical History halfway methotrexate user Morbid obesity Acquired hypothyroidism Anemia Seropositive rheumatoid arthritis GERD (gastroesophageal reflux disease) Obesity Vitamin D deficiency Family history of colon cancer in father Colon adenomas Surgical History H/O colonoscopy Family History Father Colon cancer, Onset Age: 58 Mother Lung cancer Cancer Maternal Grandmother Lung cancer Social History Household Members: Spouse and Children Housing: House Alcohol intake: current Alcohol intake frequency: a few times a week Patient Tobacco Use Status: Former Tobacco user e-Cigarette/Vaping Use: Never Used Current occupational status: employed 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 [employer] Current occupational exposures/hazards: No Cognitive needs: No Hearing needs: No Vision needs: No Review of Systems Const Denies weight gain and Denies weight loss ENT Reports no additional complaints, Denies dysphagia and Denies odynophagia Card Reports no additional complaints Resp Reports no additional complaints GI Denies abdominal pain, Denies belching, Denies melena, Denies bloating, Denies change in bowel habits, Denies dysphagia, Denies excessive flatus, Denies dyspepsia, Denies heartburn, Denies diarrhea, Denies loose stools, Denies nausea, Denies odynophagia and Denies vomiting Reports no additional complaints Musc Reports no additional complaints Neuro Reports no additional complaints Psych Reports no additional complaints Endo Reports no additional complaints Physical Exam Vital Signs: Last Vital Signs Pulse 84 10/19/24 08:29 BP 128/84 10/19/24 08:29 Pulse Ox 94 10/19/24 08:29 Oxygen Delivery Method Room Air 10/19/24 08:29 BMI result Body Mass Index 39.8 Const General: healthy appearing, no acute distress and well developed Nutritional Appearance: well nourished and obese Orientation/consciousness: patient oriented x3 Resp Effort & Inspection: normal respiratory effort, able to speak in complete sente nces, no tracheal deviation and symmetric chest movement Auscultation: clear to auscultation bilaterally Cardio Rate: regular rate GI Inspection: Yes normal to inspection, No distended and Yes obesity Palpation (GI): Soft to palpation, not firm, nontender and No hepatosplenomegaly present Auscultation: normal bowel sounds General: Yes no CVA tenderness Back/Spine/Pelvis Back: no CVA tenderness Skin General skin exam: elasticity normal, turgor normal and dry skin Neuro General: patient oriented x3 Psych Appearance: grossly normal Mental Status: mental status grossly normal Assessment & Plan Assessment & Plan (1) Family history of colon cancer in father: Code(s): Z80.0 - Family history of malignant neoplasm of digestive organs Category: Medical (2) Screen for colon cancer: Code(s): Z12.11 - Encounter for screening for malignant neoplasm of colon Plan Patient denies any GI, cardiac or respiratory symptoms.? Denies any issues with anesthesia in the past.? Denies any history of sleep apnea.? No history infectious diseases in the past or present.? Not on any anticoagulation therapy.? Family history of CRC.? Patient denies melena, hematochezia, unintentional weight loss or ribbon like stools.? Discussed at length the pre- procedure,? prep, diet & medications as well as what to expect prior, during and after the procedure.?? Stressed the importance of good bowel prep.? Recommended the use of Vaseline or Calmoseptine OTC & baby wipes with bowel movements to promote comfort.? ?Patient verbalizes understanding and agrees to plan of care.? He was given the opportunity to ask questions and all questions answered.? We will see him after the procedure.? Medications: New bisacodyl (Dulcolax (bisacodyl)) take 4 tabs at noon the day before your colonoscopy 20 mg (4 x 5 mg) PO ONCE 1 day 4 tabs 0RF Z12.11 - Encounter for screening for malignant neoplasm of colon polyethylene glycol 3350 (Miralax) As directed by gastroenterology department at [facility] 238 grams PO ONCE 238 grams 0RF Z12.11 - Encounter for screening for malignant neoplasm of colon Coding Level of Care Code New Pt Level 3 (80084) Diagnoses Family history of colon cancer in father Z80.0 Screen for colon cancer Z12.11 Time Spent (min) 40 Comment 30 minutes spent with patient and additional 10 minutes spent reviewing his records
[2024-10-19 08:29] VITALS: BP 128/84; PULSE 84; O2SAT 94; BMI 39.8
== END 2024-10-19 08:59 | disposition home or self-care (01) ==
LOC: HO.HGI 08:28
PROVIDERS: PCP Internal Medicine; Visit Provider Nurse Practitioner Family
DX: Z01.818 Encounter for other preprocedural examination (principal); Z12.11 Encounter for screening for malignant neoplasm of colon; Z80.0 Family history of malignant neoplasm of digestive organs
CPT/HCPCS: 99202

== ENCOUNTER 2025-04-12 10:26 | Day surgery (SDC) | payer OTHER, SELFPAY ==
[2025-04-10 14:04] VITALS: BMI 39.8
--- NOTE | 2025-04-11 08:50 | P.CONAN_ITS ---
Documented by User: Stefanie Quintana NP 04/11/25 08:52 HPI - Anesthesia Eval Consult details Narrative: 49yo M for Colonoscopy [facility] Active Problems Active Problems: All Active Problems Morbid obesity (Acute) Vitamin D deficiency (Acute) Acquired hypothyroidism (Acute) Mixed hyperlipidemia (Acute) Seropositive rheumatoid arthritis (Acute) Family history of colon cancer in father (Acute) Colon adenomas (Acute) Past Medical History Medical History Morbid obesity Acquired hypothyroidism Anemia Seropositive rheumatoid arthritis GERD (gastroesophageal reflux disease) Obesity Vitamin D deficiency Family history of colon cancer in father Colon adenomas Family History Family History Father Colon cancer, Onset Age: 58 Mother Lung cancer Cancer Maternal Grandmother Lung cancer Surgical History Surgical History H/O colonoscopy Social History Social History Household Members: Spouse and Children Housing: House Alcohol intake: current Alcohol intake frequency: a few times a week Patient Tobacco Use Status: Former Tobacco user e-Cigarette/Vaping Use: Never Used Use of substances other than those prescribed or required for medical reasons: No Are you DNR?: No Advance Directives: No Advance Directives Information Provided: Yes Current occupational status: employed 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 [employer] Current occupational exposures/hazards: No Cognitive needs: No Hearing needs: No Vision needs: No Meds Allergies Allergy/AdvReac Type Severity Reaction Status Date / Time No Known Allergies (No Known Allergy Verified 04/12/25 10:34 Allergies*) Exam Height,Weight and Vital Signs: Height 6 ft 2 in Weight 140.614 kg Assessment and Plan Assessment Anesthesia Assessment: Chart Reviewed Documented by User: Tonia Seth MD 04/12/25 11:15 PMF Past Medical History Medical History Morbid obesity Acquired hypothyroidism Anemia Seropositive rheumatoid arthritis GERD (gastroesophageal reflux disease) Obesity Vitamin D deficiency Family history of colon cancer in father Colon adenomas Family History Family History Father Colon cancer, Onset Age: 58 Mother Lung cancer Cancer Maternal Grandmother Lung cancer Family history of problems with anesthesia: No Surgical History Surgical History H/O colonoscopy History of Problems with Anesthesia: No Social History Social History Household Members: Spouse and Children Housing: House Alcohol intake: current Alcohol intake frequency: a few times a week Patient Tobacco Use Status: Former Tobacco user e-Cigarette/Vaping Use: Never Used Use of substances other than those prescribed or required for medical reasons: No Are you DNR?: No Advance Directives: No Advance Directives Information Provided: Yes Current occupational status: employed 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 [employer] Current occupational exposures/hazards: No Cognitive needs: No Hearing needs: No Vision needs: No Meds Allergies Allergy/AdvReac Type Severity Reaction Status Date / Time No Known Allergies (No Known Allergy Verified 04/12/25 10:34 Allergies*) Exam Airway Mallampati Class: III TM Dist: >3cm Neck ROM: Full Heart: rrr Lungs: cta Assessment and Plan Assessment Anesthesia Assessment: Anesthesia Plan Discussed Final Anesthetic Review Family History of Problems with Anesthesia: No History of Problems with Anesthesia: No NPO: Yes ASA Class: II Final Preanesthetic Review: No Changes in Pt Med Stat, Meds/Allgs Chart Reviewed and Consent Obtained/Reviewed Patient Risk: Low Procedure Risk: Low Anesthetic Plan Anesthetic Plan: MAC: Disposition: Standard PACU
--- NOTE | 2025-04-12 10:14 | MHC.SHP ---
Pre-Procedural Eval Section A - 24 Hr Update-Section A only Date of Service: 04/12/25 The patient is an INPATIENT: No The patient has been examined within 24 hours of the surgical procedure. The History & Physical has been completed within 30 days and I have reviewed it.: No Section B - Complete if H&P > 30 days Chief Complaint: Surveillance for colon polyps Relevant Family History (Specify if Yes): Yes Relevant Social History: Tobacco Use (Former smoker) Present Medications: see Short Stay Collaborative assessment Medical History: Significant History (longterm methotrexate user Morbid obesity Acquired hypothyroidism Anemia Seropositive rheumatoid arthritis GERD (gastroesophageal reflux disease) Obesity Vitamin D deficiency Family history of colon cancer in father Colon adenomas) History of Previous Operations: Relevant previous surgery/procedure and date(s) (History of colonoscopy) Allergies: Allergies Allergy/AdvReac Type Severity Reaction Status Date / Time No Known Allergies (No Known Allergy Verified 10/19/24 08:29 Allergies*) Review of Systems Sugical H&P ROS: Negative: Constitution, Cardiovascular, Respiratory and Gastrointestinal Exam Surgical H&P Exam: Normal: Heart, Normal: Lungs, Normal: Extremities and Normal: Abdomen Plan Diagnosis/Plan: Unchanged I have reviewed the history and physical and performed a pertinent physical examination on my patient. No changes have occurred unless specified. Time Spent With Patient Time: Total time managing care of this patient today ____ minutes.
[2025-04-12 10:37] VITALS: BMI 40.2
[2025-04-12 10:40] VITALS: BP 141/89; PULSE 71; RESP 16; TEMP 36.1; O2SAT 98
[2025-04-12] MEDS: Lactated Ringers 1,000 ML 100 ML IVCONT (10:52)
[2025-04-12 12:01] VITALS: BP 100/57; PULSE 60; RESP 16; TEMP 36.4; O2SAT 92
--- NOTE | 2025-04-12 12:02 | HO.OPN-COLON ---
Colonoscopy Operative Note Operative Note Date of Service: 04/12/25 Narrative: COLONOSCOPY TILL CECUM WITH SNARE POLYPECTOMY, SUBMUCOSAL INJECTION AND HEMOCLIP PLACEMENT Pre-op diagnosis: Surveillance for colon polyps, family history of colon cancer. Post-op diagnosis:? Colon polyps, Diverticulosis, hemorrhoids Endoscopist:? Aylin Alexis MD Anesthesia:?MAC Consent: Indications for the procedure and potential complications of bleeding, perforation, reaction to medications and missed diagnosis were discussed with the patient and informed consent was obtained. Instrument: Olympus CF H 190 L variable stiffness adult colonoscope Monitoring: Vital signs and clinical assessment, intermittent blood pressure monitoring, continuous EKG monitoring, Pulse oximetry and Carbon Dioxide monitoring were done throughout the procedure. Please see anesthesia flowsheet. Colon withdrawl time was 30 minutes. Procedure: The patient was placed in the left lateral decubitis position and pre-procedure medications were administered. After a digital rectal examination of the ano-rectum, the video colonoscope was inserted into the rectum and advanced through the colon to the cecum. The colonoscope was slowly withdrawn in a retrograde panoramic fashion and the colon mucosa was carefully examined including a retroflexed view of the rectum. Findings and interventions are described below. Procedure Difficulty: without difficulty Findings: Terminal Ileum: Not evaluated Cecum: Normal Ascending Colon: A 2.5 cms sessile polyp in the mid- AC. Polyp was raised with 3 cc of [place] and removed piecemeal with a stiff hot snare. Polypectomy site was closed with 1 hemoclip and marked with Maura ink Transverse Colon: Two 8-10 mm sessile polyps removed with a hot snare Descending Colon: Normal Sigmoid Colon: A 15 mm sessile polyp - removed with a stiff hot snare. Moderate diverticulosis Rectum: Normal Ano-rectum: Moderate internal hemorrhoids Colon preparation: Excellent, after some irrigation. [place] Bowel Preparation Scale Right colon; 2 Transverse colon: 2 Left colon; 2 (0 = Unprepared colon segment with mucosa not seen due to solid stool that cannot be cleared. 1 = Portion of mucosa of the colon segment seen, but other areas of the colon segment not well seen due to staining, residual stool and/or opaque liquid. 2 = Minor amount of residual staining, small fragments of stool and/or opaque liquid, but mucosa of colon segment seen well. 3 = Entire mucosa of colon segment seen well with no residual staining, small fragments of stool or opaque liquid) Impression and Post Procedure Diagnosis: Colonoscopy Findings: Four small to medium-sized polyps were removed Moderate diverticulosis seen in the sigmoid colon Moderate hemorrhoids on retroflexed exam. Plan: I will send a letter with biopsy results. Repeat Colonoscopy in 6 to 12 months if polyps are adenomatous and 5 years if polyps are hyperplastic. Above findings were reviewed with the patient and relevant handouts were given and the discharge area. BIOPSIES SHOWED: A. Colon, ascending, polypectomy: Fragments of sessile serrated lesion/polyp; negative for cytologicdysplasia. B. Colon, transverse, polypectomy: Fragments of tubular adenoma; negative for high-grade dysplasia or carcinoma. C. Colon, sigmoid, polypectomy: Tubular adenoma; negative for high-grade dysplasia or carcinoma Letter sent to the patient with biopsy results. Pt was placed on the colonoscopy recall list for repeat colon in 6 to 12 months.
[2025-04-12 12:16] VITALS: BP 112/69; PULSE 77; RESP 18; TEMP 36.8; O2SAT 96
== END 2025-04-12 12:50 | disposition home or self-care (01) ==
PROVIDERS: PCP Internal Medicine; Visit Provider Internal Medicine Gastroenterology
PROC: 0DJD8ZZ Inspection of Lower Intestinal Tract, Via Natural or Artificial Opening Endoscopic (ICD-10-PCS; CPT 45378; principal; 2025-04-12 12:00)
DX: Z12.11 Encounter for screening for malignant neoplasm of colon (principal); D12.2 Benign neoplasm of ascending colon; D12.3 Benign neoplasm of transverse colon; D12.5 Benign neoplasm of sigmoid colon; K57.30 Diverticulosis of large intestine without perforation or abscess without bleeding; K64.8 Other hemorrhoids; Z86.0101 Personal history of adenomatous and serrated colon polyps; Z80.0 Family history of malignant neoplasm of digestive organs
CPT/HCPCS: 45385; 45381; 88305; J2003; J2704

== ENCOUNTER → 2025-04-12 10:26 | Outpatient (BNV) | payer OTHER, SELFPAY | PROVIDERS: PCP Internal Medicine; Visit Provider Internal Medicine Gastroenterology | DX: Z12.11 Encounter for screening for malignant neoplasm of colon (principal); D12.2 Benign neoplasm of ascending colon; D12.3 Benign neoplasm of transverse colon; D12.5 Benign neoplasm of sigmoid colon; K57.30 Diverticulosis of large intestine without perforation or abscess without bleeding; K64.8 Other hemorrhoids | CPT/HCPCS: 45381; 45385 ==

== ENCOUNTER 2025-05-22 08:14 | Outpatient (REF) | payer OTHER, SELFPAY ==
[2025-05-22 11:49] LABS: Aspartate Amino Transferase 31 U/L (5-37); Cholesterol 187 mg/dL (<200); Free T4 (Free Thyroxine) 0.88 ng/dL (0.71-1.85); HDL Cholesterol 42 mg/dL (>40); Thyroid Stimulating Hormone 4.94 uIU/mL (0.32-4.0); Triglycerides 163 mg/dL (<150)
[2025-05-22 12:05] LABS: Alanine Aminotransferase 41 U/L (0-40)
== END 2025-05-22 08:15 | disposition home or self-care (01) ==
LOC: HO.HMGCLDS 08:14
PROVIDERS: PCP Internal Medicine; Visit Provider Internal Medicine
DX: E78.2 Mixed hyperlipidemia (principal); E03.9 Hypothyroidism, unspecified; E66.01 Morbid (severe) obesity due to excess calories; E55.9 Vitamin D deficiency, unspecified
CPT/HCPCS: 36415; 80061; 82306; 84439; 84443; 84450; 84460

== ENCOUNTER 2025-05-28 13:18 | Outpatient (AMB) | payer OTHER, SELFPAY ==
--- NOTE | 2025-05-28 13:22 | MHC.PC.OV ---
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: No Allergies No Known Allergies (No Known Allergies*) Allergy (Verified 05/28/25 13:43) Medication List - Last Reconciled 05/28/25 by Cristina Mane MD atorvastatin 10 mg PO DAILY cholecalciferol (vitamin D3) 50 mcg PO DAILY levothyroxine 75 mcg PO QAM Tobacco use date assessed: 05/23/24 Dental Screening Dental Screen Date: 05/23/24 Did you have a dental visit in the last 12 months?: Yes Did you have a dental problem in the last 6 months where you did not have access to dental care?: No Was dental information given to patient?: Patient has dentist HPI Annual PE HPI Details 49-year-old male past medical history of acquired hypothyroidism, morbid obesity, seropositive rheumatoid arthritis, mixed dyslipidemia, and history of adenomatous polyps of colon, here today for his physical exam. He has been feeling well, compliant with taking his medications, with no complaints at present time. He had his screening colonoscopy done 04/12/2025 with removal of 2 tubular adenomas and wants serrated polyp, due for a repeat colonoscopy again with Dr. Alexis next year. Patient had a recent vasectomy done in [place] a month ago. Latest fasting labs showed lipids and free T4 within normal limits but TSH mildly elevated. His fasting lipids showed mildly elevated triglycerides with normal LDL cholesterol and total cholesterol. [facility] Medical History (Updated 05/28/25 @ 14:04 by Cristina Mane MD) History of adenomatous polyp of colon Morbid obesity Acquired hypothyroidism Anemia Seropositive rheumatoid arthritis GERD (gastroesophageal reflux disease) Obesity Vitamin D deficiency Family history of colon cancer in father Colon adenomas Surgical History H/O colonoscopy Family History Father Colon cancer, Onset Age: 58 Mother Lung cancer Cancer Maternal Grandmother Lung cancer Social History Household Members: Spouse and Children Housing: House Alcohol intake: current Alcohol intake frequency: a few times a week Patient Tobacco Use Status: Former Tobacco user e-Cigarette/Vaping Use: Never Used Current occupational status: employed 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 1. Little interest or pleasure in doing things: not at all 2. Feeling down, depressed, or hopeless: not at all 3. Trouble falling or staying asleep, or sleeping too much: not at all 4. Feeling tired or having little energy: not at all 5. Poor appetite or overeating: not at all 6. Feeling bad about yourself - or that you are a failure or have let yourself or your family down: not at all 7. Trouble concentrating on things, such as reading the newspaper or watching television: not at all 8. Moving or speaking so slowly that other people could have noticed. Or the opposite - being so fidgety or restless that you have been moving around a lot more than usual: not at all 9. Thoughts that you would be better off or of hurting yourself in some way: not at all Total score: 0 Depression Screening Interpretation: Negative Depression Screening Done: Yes 00447 - PHQ-9 Billing: Yes Source: Developed by Drs. Wellington Gordon, Anabell Barry, Riley Bernal and colleagues, with an educational alfredo from [employer]. Thrive Questionnaire Date Thrive assessed: 05/28/25 I am a: Patient What is your living situation today?: I have a steady place to live Within the past 12 months, did the food you bought not last and you didn't have the money to get more?: Never true Within the past 12 months, did you worry whether your food would run out before you got money to buy more?: Never true Do you have trouble paying for medicines?: No Do you have trouble getting transportation to medical appointments?: No Do you have trouble paying your heating and electricity bill?: No Do you have trouble taking care of your child, family member or friend?: No Do you have trouble with day-to-day activities such as bathing, preparing meals, shopping, managing finances, etc.?: No Are you currently unemployed and looking for a job?: No Are you interested in more education?: No Please select the resources that you would like help with: None Currently or been in a relationship where the following occur: No concerns reported THRIVE Score: 0 AUDIT C Alcohol Use Questionnaire (AUDIT-C) 1. How often do you have a drink containing alcohol?: 2-3 times a week 2. How many drinks containing alcohol do you have on a typical day when you are drinking?: 3 or 4 3. How often do you have six or more drinks on one occasion?: Less than monthly Total Score: 5 Score Reviewed/Action Taken: Yes RAJANI-7 AMB Questionnaire RAJANI-7 Date RAJANI - 7 assessed: 05/28/25 Feeling nervous, anxious, or on edge: 0 = Not at all Not being able to stop or control worryin = Not at all Worrying too much about different things: 0 = Not at all Trouble relaxin = Not at all Being so restless that it is hard to sit still: 0 = Not at all Becoming easily annoyed or irritable: 0 = Not at all Feeling afraid as if something awful might happen: 0 = Not at all Total RAJANI-7 score (0-4 normal; 5-9 mild; 10-14 moderate; 15-21 severe): 0 Source: Developed by Drs. Wellington Gordon, Anabell Barry, Riley Bernal and colleagues, with an educational alfredo from [employer]. RAJANI-7 Assessment Billing RAJANI-7 Assessment Tool: RAJANI-7 Assessment 34211 Review of Systems Const Denies body aches, Denies fatigue, Denies fever(s), Denies headache(s), Denies weakness and Reports weight gain Eyes Denies change in vision ENT Denies dizziness, Denies headache(s), Denies nasal congestion, Denies nasal discharge and Denies sore throat Card Denies chest pain, Denies lightheadedness, Denies palpitations and Denies dyspnea Resp Denies chest congestion, Denies cough, Denies dyspnea and Denies wheezing GI Denies abdominal pain, Denies change in bowel habits and Denies heartburn Details: History of vasectomy Denies dysuria, Denies urinary frequency and Denies urinary urgency Musc Reports no additional complaints Skin/Breast Denies lesions and Denies rash Neuro Denies dizziness, Denies headache(s) and Denies weakness Psych Details: Negative for anxiety, depression Endo Denies fatigue, Denies polydipsia, Denies polyuria and Denies palpitations Wilbur/Lymph Details: . Denies easy bruising Aller/Immun Denies seasonal rhinorrhea and Denies wheezing Physical exam (Primary Care) Vital Signs: Last Vital Signs Temp 98.0 F 05/28/25 13:23 Pulse 90 05/28/25 13:23 Resp 16 05/28/25 13:23 BP 132/82 05/28/25 13:23 Pulse Ox 98 05/28/25 13:23 Oxygen Delivery Method Room Air 05/28/25 13:23 BMI result Body Mass Index 41.3 Tobacco/Smoking Status: Tobacco use Status Tobacco use date assessed 05/23/24 05/28/25 13:27 Patient Tobacco Use Status Former Tobacco user 05/28/25 13:27 e-Cigarette/Vaping Use Never Used 05/28/25 13:27 PHQ-9: PHQ-9 Score PHQ-9: Total score 0 05/28/25 13:43 Depression Screening Interpretation: Negative Thrive Assessment: Date of Thrive Assessment Date Thrive assessed 05/28/25 05/28/25 13:27 Currently or been in a relationship where the following occur: No concerns reported Const General: no acute distress and alert Nutritional Appearance: obese morbidly obese Orientation/consciousness: patient oriented x3 HENMT Mouth: Normal oral and palatal mucosa present and moist mucous membranes Eyes General: appearance normal, both eyes and all related structures Neck Neck: Yes full ROM, Yes no lymphadenopathy and Yes supple Thyroid: Thyroid normal (Nonpalpable and nontender) Chest Chest palpation & inspection: normal inspection of the chest and normal palpation of entire chest wall Resp Effort & Inspection: normal respiratory effort and able to speak in complete sentences Auscultation: clear to auscultation bilaterally Cardio Other: S1-S2 present, regular rate and rhythm GI Other: Normal bowel sounds, obese , soft, no rebound or guarding noted General: Yes no CVA tenderness Back/Spine/Pelvis Back: no CVA tenderness and No back tenderness Skin General skin exam: no rashes or lesions noted Neuro General: patient oriented x3, gait normal, tone normal, moves all extremities, Normal light touch and pain sensation and no focal motor deficits Extrem General: Yes full ROM, Yes no joint enlargement, Yes no clubbing, cyanosis or edema, Yes no calf tenderness and Yes normal gait Psych Appearance: grossly normal and well kempt Mental Status: mental status grossly normal Speech and movement: Normal speech and movement present Affect: normal affect Results Reviewed Results Reviewed: Name: Rocael Thomas Age/Sex: 49/M : 1975 Unit#: [id number] Attend Dr: Cristina Mane MD Re05/22/25 Status: DEP REF [facility] Disch: SPEC : [id number] OMEGA: 05/22/25 STATUS: COMP REQ : [id number] RECD: 05/22/[address]: Cristina Mane MD COMP: 05/22/25 ENTERED: 05/22/25 [facility] DR: ORDERED: AST, ALT, Lipid Panel, Vitamin D 25-OH, Free T4, TSH Test Result Flag Reference AST (GOT) 31 5-37 U/L ALT (GPT) 41 H 0-40 U/L Triglyceride 163 H <150 mg/dL Desirable Triglyceride: less than 150 mg/dL Borderline High Triglyceride 150-199 mg/dL High Triglyceride: 200-499 mg/dL Very High Triglyceride: greater than or equal to 5OO mg/dL Cholesterol 187 <200 mg/dL Desirable Cholesterol: less than 200 mg/dL Borderline High Cholesterol: 200-239 mg/dL High Cholesterol: greater than 239 mg/dL LDL Calculated 113 H <100 mg/dL Desirable LDL: less than 100 mg/dL Near Optimal/Above Optimal LDL: 110-129 mg/dL Borderline High LDL: 130-159 mg/dL High LDL: 160-189 mg/dL Very High LDL: greater than or equal to 190 mg/dL HDL 42 >40 mg/dL Desirable HDL: greater than 40 mg/dL Note: This HDL assay may give artificially low results in patients with liver disease. Vitamin D 25-OH 61.9 >30 ng/mL Health Based Reference Values* < 20 ng/mL Deficient 20-30 ng/mL Insufficient > 30 ng/mL Sufficient *Nae POSADAS. N Engl J Med. 2007;357:266-280 There is no well-established upper level of normal vitamin D levels. Some laboratories use 50 ng/mL as an upper limit of normal. However, toxicity is patient-dependent and may occur at any level. Careful correlation with the patient's presentation is necessary and, if there is concern for vitamin D toxicity, treatment should be considered irrespective of the serum level. Care must be taken in interpreting Vitamin D results from different laboratories and methodologies. Published data demonstrated that results from patients undergoing hemodialysis may show a negative bias when tested with various automated 25-OH vitamin D assays when compared to LC-MS/MS. When testing samples from patients whose predominant form of Vitamin D is Vitamin D2, such as patients receiving Vitamin D2 supplementation, results that are subtherapeutic should be confirmed with another method such as LC-MS/MS. Free T4 0.88 0.71-1.85 ng/dL TSH 3rd Gen. 4.94 H 0.32-4.0 uIU/mL Note: A sustained TSH level above 2.5 uIU/mL may warrant further investigation. TSH 3rd Generation ([facility]) Coding Level of Care Code Est Pt Prev Care 40-64y(30635) Diagnoses Annual visit for general adult medical examination with abnormal findings Z00. Mixed hyperlipidemia E78.2 Acquired hypothyroidism E03.9 Morbid obesity E66.01 History of adenomatous polyp of colon Z86.0101 Additional Codes RAJANI-7 Assessment Billing - RAJANI-7 Assessment Tool: RAJANI-7 Assessment 61241 ([id number]) PHQ-9 - 40267 - PHQ-9 Billing: Yes ([id number]) Assessment & Plan Assessment & Plan (1) Annual visit for general adult medical examination with abnormal findings: Code(s): Z00.01 - Encounter for general adult medical examination with abnormal findings Plan: Fasting lab results reviewed with patient. Reminded to get dental cleaning every six-months and at least an eye exam every 2 years continue with the adherence to healthy eating habits and regular exercise. Up-to-date with his colon cancer screening, had a vasectomy done several months ago in [place], declined offer for flu vaccine and COVID booster, up-to-date with his Tdap (2) Mixed hyperlipidemia: Code(s): E78.2 - Mixed hyperlipidemia Category: Medical Plan: Reviewed recent fasting lipid profile with patient with higher triglyceride levels, with normal total cholesterol LDL cholesterol and HDL . Continue atorvastatin 10 mg once a day , in addition to adherence to low-cholesterol diet and regular exercise, at least 30 minutes 3 to 4 times a week. Advised patient to make healthy food choices, eat more fruits, vegetables, whole grains, wild caught fish and low-fat dairy. Limit amount of meat and fried or fatty food products, as well as processed foods and fast foods. (3) Acquired hypothyroidism: Code(s): E03.9 - Hypothyroidism, unspecified Category: Medical Plan: TSH elevated, but free T4 within normal limits, currently feeling well on current dose of levothyroxine at 75 mcg daily taken in the morning, will continue with current dose, recheck levels again next year (4) Morbid obesity: Code(s): E66.01 - Morbid (severe) obesity due to excess calories Category: Medical Plan: Discussed need to increase activity and weight reduction. Recommended focusing on improving health instead of dieting. Mediterranean diet is a healthy diet that helps, limit food high in fat, sugar, and calories. Eat slowly, pay attention to portion sizes, plan your meals ahead of time, start regular physical activity, at least 150 minutes of moderate intensity exercise, or 90 minutes per week of vigorous exercise. (5) History of adenomatous polyp of colon: Code(s): Z86.0101 - Personal history of adenomatous and serrated colon polyps Category: Medical Plan: Patient due for repeat colonoscopy with Dr. Alexis next year Medications: Refilled levothyroxine 75 mcg PO QAM 90 tabs 4RF atorvastatin 10 mg PO DAILY 90 tabs 4RF E78.2 - Mixed hyperlipidemia
[2025-05-28 13:23] VITALS: BP 132/82; PULSE 90; RESP 16; TEMP 36.7; O2SAT 98; BMI 41.0
== END 2025-05-28 14:36 | disposition home or self-care (01) ==
LOC: HO.HMCC 13:18
PROVIDERS: PCP Internal Medicine; Visit Provider Internal Medicine
DX: Z00.01 Encounter for general adult medical examination with abnormal findings (principal); E66.01 Morbid (severe) obesity due to excess calories; E78.2 Mixed hyperlipidemia; Z68.41 Body mass index [BMI] 40.0-44.9, adult; E03.9 Hypothyroidism, unspecified; Z86.0101 Personal history of adenomatous and serrated colon polyps

== ENCOUNTER → 2025-05-28 13:18 | Outpatient (BNVA) | payer OTHER, SELFPAY | PROVIDERS: PCP Internal Medicine; Visit Provider Internal Medicine | DX: Z00.01 Encounter for general adult medical examination with abnormal findings (principal); E78.2 Mixed hyperlipidemia; E03.9 Hypothyroidism, unspecified; E66.01 Morbid (severe) obesity due to excess calories; Z86.0101 Personal history of adenomatous and serrated colon polyps; Z68.41 Body mass index [BMI] 40.0-44.9, adult | CPT/HCPCS: 96127 ==